=== PATIENT | female | born 1980 | race Caucasian/White ===

== ENCOUNTER 2021-02-17 12:39 | Emergency (ER) | payer MEDICAID, SELFPAY ==
[~2021-02-17] VITALS: Ht 147.3 cm; Wt 108.9 kg
--- NOTE | 2021-02-17 12:39 | NUR ---
PT BROUGHT IN BY [facility], TRIAGED AND SENT TO WAITING ROOM. VSS. PT IS FREQUENTLY IN ER REQUESTING NARCOTICS
[2021-02-17 12:40] VITALS: BP_SYST 125
--- NOTE | 2021-02-17 12:53 | NUR ---
DR GRANADOS OUT TO TRIAGE ROOM TO EVALUATE PT.
[2021-02-17] MEDS ORDERED: MORPHINE 4 MG INJ. 4 MG/ML VIAL IM ONE (13:15)
--- NOTE | 2021-02-17 14:08 | NUR ---
PT LEFT ER WAITING ROOM AND WENT TO HOSPITAL LOBBY. PT TELLING HORTICULTURAL THERAPIST THAT SHE WANTS TO GO TO [facility] AND TO CALL 911, HORTICULTURAL THERAPIST CALLED ER TO COME TALK WITH HER.
--- NOTE | 2021-02-17 14:11 | NUR ---
HAD LONG CONVERSATION WITH PT ABOUT HER DRUG PROBLEM, PT STATES SHE NEEDS TO GO BUT DOESN'T KNOW HOW TO DO IT. I EXPLAINED SHE NEEDS TO CALL HER BOYFRIEND AND HAVE HIM TAKE HER. PT STATES SHE IS GOING TO CALL 911 AND GO TO [facility]. PT STATES SHE CALLED HER PMD AND WAS TOLD TO GO TO [facility]. PT DEMANDING TO GET MORE MORPHINE AND NORCO.
--- NOTE | 2021-02-17 14:31 | NUR ---
PT LEFT WITHOUT PAPERWORK. PT ELOPED FROM HOSPITAL WAITING ROOM
--- NOTE | 2021-02-17 14:51 | NUR ---
Taylor ly in [facility] - 02/17/21 at 1459 by DIANDRA PT LEFT WITHOUT PAPERWORK. PT ELOPED FROM HOSPITAL WAITING ROOM
== END 2021-02-17 14:31 | disposition left against medical advice (07) ==
LOC: SED 12:39
DX: F11.90 Opioid use, unspecified, uncomplicated (principal); R10.9 Unspecified abdominal pain; Z88.5 Allergy status to narcotic agent
CPT/HCPCS: 96372; 99283; J2270